=== PATIENT | male | born 1955 | race Caucasian/White ===

== ENCOUNTER → 2017-06-09 | Emergency (ER) | END | disposition home or self-care (01) ==

== ENCOUNTER 2017-06-10 13:08 | Emergency (ER) | END 2017-06-10 15:47 | disposition home or self-care (01) ==

== ENCOUNTER 2017-10-05 08:07 | Emergency (ER) | END 2017-10-05 11:49 | disposition home or self-care (01) ==

== ENCOUNTER 2017-12-03 19:04 | Emergency (ER) | END 2017-12-03 21:42 | disposition home or self-care (01) ==

== ENCOUNTER 2017-12-28 11:04 | Emergency (ER) | END 2017-12-28 12:45 | disposition home or self-care (01) ==

== ENCOUNTER 2018-01-24 22:53 | Emergency (ER) | END 2018-01-25 02:06 | disposition home or self-care (01) ==

== ENCOUNTER 2018-01-25 13:03 | Inpatient (IN) | END 2018-01-27 14:00 | disposition home or self-care (01) | DRG 845 ==

== ENCOUNTER 2018-02-11 16:57 | Emergency (ER) | payer OTHER ==
[~2018-02-11] VITALS: Ht 175.3 cm; Wt 75.0 kg
[~2018-02-11 16:57] MED LIST: BENA40TA56 PO; CANA300T PO; HYDR-3601 PO; TAMS-14 PO
[2018-02-11 16:59] VITALS: Ht 175.3 cm; Wt 75.0 kg
[2018-02-11] MEDS ORDERED: HYDROmorphONE 0.5 MG/0.5 ML SYG IM STA (18:58)
[2018-02-11] MEDS ORDERED: KETOROLAC 30 MG INJ IM STA (18:58)
[2018-02-11] MEDS ORDERED: NALO4SPR NS (19:06)
[2018-02-11] MEDS ORDERED: HYDR-3980 PO (19:06)
[2018-02-11] MEDS ORDERED: DOCU-144 PO (19:07)
--- NOTE | 2018-02-11 19:10 | ERD ---
ER Documentation Chief Complaint Chief Complaint Complains of of back pain HPI 62-year-old male presents with several month history of thoracic back pain. 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 He recently had a biopsy and is scheduled to receive his results tomorrow. He is here complaining of worsening pain over the last few days. He has some history of possible constipation pain with bowel movements but no incontinence, numbness or weakness. Denies any fevers, shortness of breath or chest pain. No recent injury. ROS All systems reviewed and are negative except as per history of present illness. Medications Home Meds Active Scripts Docusate Sodium* (Colace*) 100 Mg Capsule, 100 MG PO BID, #60 CAP Prov:LASHELL WICK MD 02/11/18 Naloxone HCl (Narcan) 4 Mg [place], 4 MG NS ONCE for overdose, #1 SPRAY Prov:LASHELL WICK MD 02/11/18 Hydrocodone/Acetaminophen ([place]ough [place] 10-325 Tablet) 1 Each Tablet, 1 TAB PO Q6H PRN for PAIN, #15 TAB Prov:LASHELL WICK MD 02/11/18 Hydrocodone Bit-Acetaminophen (Hydrocodone Bit-APAP) 5-325MG Tablet, 2 TAB PO Q6H PRN for PAIN, #60 TAB Prov:ALFA ZIEGLER 01/27/18 Tamsulosin Hcl* (Flomax*) 0.4 Mg Cap.er.24h, 0.4 MG PO QPM, #30 CAP Prov:LACIE MASON MD 12/03/17 Reported Medications Benazepril Hcl* (Benazepril Hcl*) 40 Mg Tablet, 40 MG PO DAILY, TAB 08/30/14 Canagliflozin (Invokana) 300 Mg Tablet, 300 MG PO DAILY, TAB 08/30/14 Allergies Allergies: Coded Allergies: Penicillins (Unverified Allergy, Unknown, 01/25/18) PMhx/Soc History of Surgery: No Anesthesia Reaction: No Hx Neurological Disorder: No Hx Respiratory Disorders: No Hx Cardiac Disorders: No Hx Psychiatric Problems: No Hx Miscellaneous Medical Probl: Yes (DM, chronic back pain) Hx Alcohol Use: No Hx Substance Use: No Hx Tobacco Use: No Smoking Status: Never smoker FmHx Family History: No diabetes, No coronary disease, No other Physical Exam Vitals Vital Signs Date Temp Pulse Resp B/P (MAP) Pulse Ox O2 O2 Flow FiO2 Time Delivery Rate 02/11/18 98.4 93 20 173/91 97 16:59 (118) Physical Exam Const: No acute distress Head: Atraumatic Eyes: Normal Conjunctiva ENT: Normal External Ears, Nose and Mouth. Neck: Full range of motion. No meningismus. Resp: Clear to auscultation bilaterally Cardio: Regular rate and rhythm, no murmurs Abd: Soft, non tender, non distended. Normal bowel sounds Skin: No petechiae or rashes Back: No midline or flank tenderness minimal tenderness around the upper lumbar spine area without deformities, skin changes. 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 He is scheduled to receive his biopsy results tomorrow. He has no current signs or symptoms of paralysis, bacterial infection, additional complications. Was given Dilaudid 1 mg IM, Toradol 30 mill grams and will given a short course of [place] until he can follow-up with his treating outpatient physician. He was given a option for 1 dose dose of Narcan per [place] regulations as well. Cures review shows 60 Rough And Ready 2 weeks ago 2-week supply as prescribed. The patient was stable with no new complaints during the ER course. Clinically, there is no current evidence to suggest meningitis, sepsis, acute abdomen, pneumonia, stroke, acute coronary syndrome, pulmonary embolism, aortic dissection or any other emergent condition appearing to require further evaluation or hospitalization. Patient counseled regarding my diagnostic impression and care plan. Prior to discharge all questions answered. Pt agrees with treatment plan and understands strict return precautions. Pt is instructed to follow up with primary care provider within 24-48 hours. Precautionary instructions provided including instructions to return to the ER if not improving or for any worsening or changing symptoms or concerns. Departure Diagnosis: Primary Impression: Cancer related pain Additional Impression: Back pain Back pain location: thoracic back pain Chronicity: chronic Back pain laterality: bilateral Qualified Codes: M54.6 - Pain in thoracic spine; G89.29 - Other chronic pain Condition: Stable Patient Instructions: Back Pain (Acute Or Chronic) Additional Instructions: See specialist as scheduled for biopsy results. Recheck otherwise for weakness, fevers, new worsening symptoms. LASHELL WICK MD Feb 11, 2018 19:10
[2018-02-11 19:30] VITALS: BP 147/89; PULSE 89; RESP 16
== END 2018-02-11 19:32 | disposition home or self-care (01) ==
LOC: FTE 16:57
DX: G89.3 Neoplasm related pain (acute) (chronic) (principal); E11.9 Type 2 diabetes mellitus without complications
CPT/HCPCS: 96372; 99284; J1170; J1885

== ENCOUNTER 2018-02-25 11:00 | Emergency (ER) | payer OTHER ==
[~2018-02-25] VITALS: Ht 165.1 cm; Wt 70.5 kg
[~2018-02-25 11:00] MED LIST changes: +DOCU-144 PO; +HYDR-3980 PO; +NALO4SPR NS
[2018-02-25 11:12] VITALS: Ht 165.1 cm; Wt 70.5 kg
--- NOTE | 2018-02-25 13:17 | ERD ---
ER Documentation Chief Complaint Chief Complaint urine retention, prostate ca possible in bone now HPI This 62-year-old male who presents for evaluation of urinary retention. 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 He is still urinating, but is having some dribbling, he also endorses constipation, however he is still having bowel movements, and passing gas. He has not had any fever. ROS All systems reviewed and are negative except as per history of present illness. Medications Home Meds Active Scripts Polyethylene Glycol* (Miralax*) 17 Gm Powd.pack, 17 GM PO DAILY, #7 Prov:ZARA BLUM MD 02/25/18 Docusate Sodium* (Colace*) 100 Mg Capsule, 100 MG PO BID, #60 CAP Prov:LASHELL WICK MD 02/11/18 Naloxone HCl (Narcan) 4 Mg [place], 4 MG NS ONCE for overdose, #1 SPRAY Prov:LASHELL WICK MD 02/11/18 Hydrocodone/Acetaminophen ([place] 10-325 Tablet) 1 Each Tablet, 1 TAB PO Q6H PRN for PAIN, #15 TAB Prov:LASHELL WICK MD 02/11/18 Hydrocodone Bit-Acetaminophen (Hydrocodone Bit-APAP) 5-325MG Tablet, 2 TAB PO Q6H PRN for PAIN, #60 TAB Prov:ALFA ZIEGLER 01/27/18 Tamsulosin Hcl* (Flomax*) 0.4 Mg Cap.er.24h, 0.4 MG PO QPM, #30 CAP Prov:LACIE MASON MD 12/03/17 Reported Medications Benazepril Hcl* (Benazepril Hcl*) 40 Mg Tablet, 40 MG PO DAILY, TAB 08/30/14 Canagliflozin (Invokana) 300 Mg Tablet, 300 MG PO DAILY, TAB 08/30/14 Allergies Allergies: Coded Allergies: Penicillins (Unverified Allergy, Unknown, 01/25/18) PMhx/Soc Medical and Surgical Hx: pt denies Medical Hx, pt denies Surgical Hx History of Surgery: No Anesthesia Reaction: No Hx Neurological Disorder: No Hx Respiratory Disorders: No Hx Cardiac Disorders: No Hx Psychiatric Problems: No Hx Miscellaneous Medical Probl: Yes (DM, chronic back pain) Hx Alcohol Use: No Hx Substance Use: No Hx Tobacco Use: No Smoking Status: Never smoker Physical Exam Vitals Vital Signs Date Temp Pulse Resp B/P (MAP) Pulse Ox O2 O2 Flow FiO2 Time Delivery Rate 02/25/18 97.8 110 18 150/74 98 11:12 (99) Physical Exam Const: No acute distress Head: Atraumatic Eyes: Normal Conjunctiva ENT: Normal External Ears, Nose and Mouth. Neck: Full range of motion. No meningismus. Resp: Clear to auscultation bilaterally Cardio: Regular rate and rhythm, no murmurs Abd: Soft, suprapubic distention and tenderness, no rebound or guarding, no McBurney's point tenderness.. Normal bowel sounds Skin: No petechiae or rashes Back: No midline or flank tenderness Ext: No cyanosis, or edema Neur: Awake and alert Psych: Normal Mood and Affect Result Diagram: 02/25/18 1148 02/25/18 1148 Results 24 hrs Laboratory Tests Test 02/25/18 11:48 02/25/18 11:54 White Blood Count 5.8 10^3/ul Red Blood Count 5.24 10^6/ul Hemoglobin 13.5 g/dl Hematocrit 41.9 % Mean Corpuscular Volume 80.0 fl Mean Corpuscular Hemoglobin 25.8 pg Mean Corpuscular Hemoglobin Concent 32.2 g/dl Red Cell Distribution Width 13.6 % Platelet Count 281 10^3/UL Mean Platelet Volume 9.5 fl Immature Granulocytes % 0.200 % Neutrophils % 69.7 % Lymphocytes % 21.3 % Monocytes % 7.2 % Eosinophils % 0.9 % Basophils % 0.7 % Nucleated Red Blood Cells % 0.0 /100WBC Immature Granulocytes # 0.010 10^3/ul Neutrophils # 4.1 10^3/ul Lymphocytes # 1.2 10^3/ul Monocytes # 0.4 10^3/ul Eosinophils # 0.1 10^3/ul Basophils # 0.0 10^3/ul Nucleated Red Blood Cells # 0.0 10^3/ul Sodium Level 138 mmol/L Potassium Level 4.5 mmol/L Chloride Level 100 mmol/L Carbon Dioxide Level 26 mmol/L Anion Gap 12 Blood Urea Nitrogen 17 mg/dl Creatinine 0.61 mg/dl Est Glomerular Filtrat Rate mL/min > 60 mL/min Glucose Level 146 mg/dl Calcium Level 9.6 mg/dl Urine Color YELLOW Urine Clarity CLEAR Urine pH 5.0 Urine Specific [place] 1.028 Urine Ketones TRACE mg/dL Urine Nitrite NEGATIVE mg/dL Urine Bilirubin NEGATIVE mg/dL Urine Urobilinogen NEGATIVE mg/dL Urine Leukocyte Esterase NEGATIVE [place]/ul Urine Hemoglobin NEGATIVE mg/dL Urine Glucose 3+ mg/dL Urine Total Protein NEGATIVE mg/dl Current Medications Medications Dose Sig/Karo Start Time Status Last (Trade) Ordered Route PRN Stop Time Admin Dose Reason Admin Magnesium 300 ml ONCE ONCE 02/25/18 Citrate PO 14:30 (Citroma) 02/25/18 14:31 Procedures/MDM 62-year-old male presents for evaluation of urinary retention. Hernadez catheter was inserted, with successful relief of his symptoms. I suspect his urinary retention most likely related to his prostate cancer he has follow-up with oncology this week, I recommended keeping the Hernadez catheter in place for the time being, he has no infectious symptoms, and his urinalysis was negative. Patient with chronic history of constipation, no signs or symptoms of small bowel obstruction, and no peritoneal signs on abdominal exam. Advised to continue bowel regimen for the time being, at discharge the patient was ambulat ory in no acute distress. Departure Diagnosis: Primary Impression: Urinary retention Condition: Stable ZARA BLUM MD Feb 25, 2018 13:17
[2018-02-25] MEDS ORDERED: POLY17PO6 PO (13:56)
[2018-02-25] MEDS ORDERED: MAGNESIUM CITRATE 300 ML BTL PO ONE (14:30)
[2018-02-25 14:37] VITALS: BP 147/72; PULSE 88; RESP 16
== END 2018-02-25 14:39 | disposition home or self-care (01) ==
LOC: E/R 11:00
DX: R33.9 Retention of urine, unspecified (principal); E11.9 Type 2 diabetes mellitus without complications; Z85.46 Personal history of malignant neoplasm of prostate
CPT/HCPCS: 80048; 81003; 85025